=== PATIENT | male | born 1940 | race Caucasian/White ===

== ENCOUNTER 2017-02-14 18:06 | Emergency (ER) | payer MEDICARE ==
[~2017-02-14] VITALS: Ht 182.9 cm; Wt 97.5 kg
[~2017-02-14 18:06] MED LIST: ALFUZOSIN HYDRO10 MG PO; AVODART0.5 MG PO; HYDROCODONE-APA1 TA1 PO; MELOXICAM7.5 MG PO; SAW PALMETTO1 CAP PO; [UNRECOGNIZED DRUG - OTHER] OR; [UNRECOGNIZED DRUG - OTHER] PO
[2017-02-14] MEDS ORDERED: ATORVASTATIN CA20 M1 PO (18:18)
[2017-02-14] MEDS ORDERED: CIALIS5 MG PO (18:18)
--- NOTE | 2017-02-14 19:18 | Emergency Room Report ---
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 Onset of symptoms date/time:/ or onset unknown for:MEDICAL HX UNKNOWN Treatment Prior to Arrival: [employer] Provided by: Sepsis Risk Assessment: Temp: 98.2 B/P: 140/69 MAP: 92 Pulse: 44 Resp: 18 Recent fever? N Clinical Suspician of Infection? N Mental Status: 1 - Regular (Normal Baseline) Sepsis Risk:Low Sepsis Risk Have you (or family members/close friends) recently traveled outside the [place]? N If Yes, where/when: Have you had exposure to infectious disease within the past month? TB? Other? Specify: Laceration from gate just [employer], distal palmar aspect fifth digit, 2.0 cm. No weakness or numbness. ALLERGIES Coded Allergies: Sulfa (Sulfonamide Antibiotics) (02/03/17) Home Medications Reported Medications Meloxicam (Meloxicam 7.5MG) 7.5 MG PO DAILY #60 Dutasteride (Avodart) 0.5 MG PO QHS #30 ALFUZOSIN HCL (Alfuzosin HCl ER) 10 MG PO DAILY #30 Multiple Vitamins W/ Minerals (Eye-Vites) 1 TAB PO BID Homeopathic Substance (Saw Ashley) 1 CAP PO BID [LICOPINE] 1 TAB OR QHS Tadalafil (Cialis) 5 MG PO DAILY #30 Atorvastatin Calcium 20 MG PO DAILY #30 History Medical History General Angina: No CA: No Hypertension? Yes Hyperlipidemia? No CHF? No COPD? No Asthma? No Hernia? No CVA? No Seizures? No Diabetes? No UTI? No Stones? No GB Disease: No Hepatitis? No Cataracts? No Glaucoma? No MRSA? No TB? No Cancer? No Immunization Hx DT/Tetanus 1-4 Years Ago Flu Refused Pneumonia Refuses Surgical Hx Previous Surgery?Y APPY Eear Tubes TONSILECTOMY RT CATARACT RT RETINAL DETATCHMENT OPEN HEART SURGERY Social History Smoking Hx Smoker: Never Smoker Tobacco: No Alcohol Alcohol: No Review of Systems All Other Systems Reviewed and Negative Skin see HPI Physical Exam Vital Signs Vital Signs Date Time Temp Pulse Resp B/P Pulse O2 O2 Flow FiO2 Ox Delivery Rate 02/14 1811 98.2 44 18 140/69 96 General Appearance normal appearance, WD/WN, no apparent distress Respiratory Status No: respiratory distress. Cardiovascular no peripheral edema, normal peripheral pulses Extremities normal range of motion, normal capillary refill Neurologic alert, normal exam, no motor/sensory deficits Skin laceration(s) (subcutaneous no tend/bone exp) Medical Decision Making LABS/Meds/Orders Pt receiving controlled substance in ED? No Results/Orders Current Medication Orders Sig/Delphine Start time Last Medication Dose Route Stop Time Status Admin Lidocaine HCl 0 .STK-MED ONE 02/15 1844 DC .ROUTE Procedures Laceration/Wound Repair Laceration/Wound Repair Risks/benefits discussed with pt/guardian? Yes Tetanus status up to date Wound Location finger(s) Wound Length (cm) 2 Wound's Depth, Shape sucutaneous tissue Wound Explored clean wound as soaked and prepped; no debris Irrigated w/ Saline (ccs) 20 Wound Prep Hibiclens Anesthesia 1% Lidocaine Volume Anesthetic (ccs) 1 Wound Debrided none Wound Repaired With sutures Suture Size/Type 4:0, Ethilon Layer Closure No Total Number Sutures 8 Sterile Dressing Applied Yes Departure Departure Time of Disposition 1911 Disposition DC Home or Self Care(routine) Clinical Impression Primary Impression: Laceration of finger Condition STABLE Referrals Ray Ontiverso MD (Family) Patient Instructions Laceration Repair Additional Instructions Suture removal Dr. Ontiveros one week; watch for infection. Tylenol as needed. Discharge Counseling Counseled pt/family regarding diagnosis, medications/RX, home care, follow up needs ED Critical Care Critical Care No at 1917
[2017-02-14 19:55] VITALS: BP 140/69
== END 2017-02-14 20:04 | disposition home or self-care (01) ==
LOC: ER 18:06
PROC: 0HQGXZZ Repair Left Hand Skin, External Approach (ICD-10-PCS; principal; 2017-02-14)
DX: S61.217A Laceration without foreign body of left little finger without damage to nail, initial encounter (principal); W23.0XXA Caught, crushed, jammed, or pinched between moving objects, initial encounter

== ENCOUNTER → 2017-08-15 | Outpatient (CLI) | payer MEDICARE ==
[~2017-08-15] MED LIST changes: +ATORVASTATIN CA20 M1 PO; +CIALIS5 MG PO
--- NOTE | 2017-08-15 15:36 | RADIOLOGY REPORT PS360 ---
FOOT-LT-3 VIEWS HISTORY: Pain following injury LEFT FOOT PAIN ORDERING PHYSICIAN: Ray Ontiveros MD PATIENT AGE: 76 years COMPARISON: None FINDINGS: No fracture or dislocation. No lytic or blastic change. There is normal mineralization.. The joint spaces are well-preserved. No significant degenerative/arthritic changes. No erosive changes evident. IMPRESSION: Negative left foot, no acute finding
== END ==
LOC: RAD 14:41
DX: M79.672 Pain in left foot (principal)